=== PATIENT | female | born 1990 | race Caucasian/White ===

== ENCOUNTER 2018-10-27 08:45 | Emergency (ER) | payer BC ==
[~2018-10-27] VITALS: Ht 157.5 cm; Wt 80.0 kg
[2018-10-27 08:49] VITALS: BP 143/81; PULSE 99; RESP 18; Ht 157.5 cm; Wt 80.0 kg
[2018-10-27] MEDS ORDERED: DIPHTH/TET/ACEL PERTUSS (ADULT) 0.5 ML VIAL IM* ONE (09:30)
[2018-10-27] MEDS ORDERED: LIDOCAINE 1% (MPF) 5 ML VIAL INJ ONE (09:30)
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
== END 2018-10-27 09:47 | disposition home or self-care (01) ==
LOC: FTE 08:45
DX: S01.81XA Laceration without foreign body of other part of head, initial encounter (principal); W50.0XXA Accidental hit or strike by another person, initial encounter; Y92.9 Unspecified place or not applicable; Z23 Encounter for immunization
CPT/HCPCS: 90471; 90715

== ENCOUNTER 2018-11-04 07:29 | Emergency (ER) | payer BC ==
[~2018-11-04] VITALS: Ht 162.6 cm; Wt 62.0 kg
[2018-11-04 07:32] VITALS: BP 121/68; PULSE 75; RESP 16; Ht 162.6 cm; Wt 62.0 kg
--- NOTE | 2018-11-04 07:44 | ERD ---
ER Documentation Chief Complaint Chief Complaint pt is bib self for suture removal to forehead HPI Patient is a 28 years old female presenting to clinic for suture removal on right side of forehead. Patient had a laceration repair performed on 10/27/2018 with 6 sutures placed. Patient reports wound has been healing well without any complication and denies pain, erythema, induration, pus drainage. ROS All systems reviewed and are negative except as per history of present illness. Allergies Allergies: Coded Allergies: No Known Allergy (Unverified , 11/04/18) PMhx/Soc Medical and Surgical Hx: pt denies Medical Hx, pt denies Surgical Hx History of Surgery: No Anesthesia Reaction: No Hx Neurological Disorder: No Hx Respiratory Disorders: No Hx Cardiac Disorders: No Hx Psychiatric Problems: No Hx Miscellaneous Medical Probl: No Hx Alcohol Use: No Hx Substance Use: No Hx Tobacco Use: No Smoking Status: Never smoker FmHx Family History: No diabetes, No coronary disease, No other Physical Exam Vitals Vital Signs Date Temp Pulse Resp B/P (MAP) Pulse Ox O2 O2 Flow FiO2 Time Delivery Rate 11/04/18 98.3 75 16 121/68 100 07:32 (85) Physical Exam Const: No acute distress Head: Atraumatic. Eyes: Normal Conjunctiva Resp: Clear to auscultation bilaterally Cardio: Regular rate and rhythm, no murmurs Neur: Awake and alert Psych: Normal Mood and Affect Laceration/wound Exam: Laceration has closed without any obvious signs of infection. 6 sutures noted. Procedures/MDM Patient was seen and evaluated for suture removal. Wound is clear without any obvious signs of infection. 6 sutures removed without any complications. No Steri-Strip required as wound has already closed. Patient is stable ready for discharge. Follow-up with PCP. Departure Diagnosis: Primary Impression: Encounter for removal of sutures Condition: Stable Patient Instructions: Suture Removal, No Complication Referrals: [facility] Additional Instructions: Patient advised to return to the ED immediately for new or worsening symptoms. Patient advised to follow up with primary care provider in the next 24-48 hours. Patient verbalized understanding and agrees with treatment plan and course of action. If patient has no primary care they may follow up with [facility] + [facility] [address] [place] [id number] [address] [place] [address] JOSETTE RASHEED PA-C Nov 04, 2018 07:44
== END 2018-11-04 08:16 | disposition home or self-care (01) ==
LOC: FTE 07:29 → EEVIPCON 07:29 → FTE 08:16
DX: Z48.02 Encounter for removal of sutures (principal)
CPT/HCPCS: 99281